=== PATIENT | female | born 1995 | race Caucasian/White ===

== ENCOUNTER 2021-11-27 12:44 | Outpatient (CLI) | payer OTHER, SELFPAY ==
--- NOTE | 2021-11-27 13:00 | CRLHL7_ITS ---
For Patients: As a result of the Century Cures Act, medical imaging exams and procedure reports are released immediately into your electronic medical record. You may view this report before your referring provider. If you have questions, please contact your health care provider. INDICATION: Evaluate anatomy. COMPARISON: 08/28/2021 TECHNIQUE: Real time hester scale imaging of the fetus was performed as well as color Doppler analysis of the umbilical vessels. FINDINGS: Sonographic imaging demonstrates a single living intrauterine gestation. Fetus demonstrates a regular cardiac rate of 150 beats per minute. Fetus has a longitudinal breech position. The placenta lies posteriorly without evidence of placenta previa. The edge of the placenta is located 3.6 cm from the internal cervical os. Amniotic fluid volume appears normal. Single deepest vertical pocket: 3.9 cm. The cervix is closed and measures 4.9 cm in length. The composite ultrasound gestational age is calculated at 19 weeks 4 days with an estimated sonographic due date of 04/19/2022. The estimated weight is 315 grams which lies at the 43rd %. The following biometric measurements were obtained: Biparietal diameter: 4.4 cm/19 weeks 2 days 24th% Head circumference: 16.5 cm/19 weeks 2 days 17th% Abdominal circumference: 14.8 cm/20 weeks 0 days 51st% Femur length: 3.1 cm/19 weeks 5 days 38th% The HC/AC ratio measures: 1.12 range (1.08-1.26) On anatomic survey, there is a normal appearance of the cerebral ventricles, cavum septi pellucidi, cisterna magna and cerebellum. The nose, lips, and facial profile appear normal. The cervical, thoracic and lumbar spine are well visualized and appear normal. There is a normal four-chamber heart view and the left and right ventricular outflow tracts appear normal. The diaphragm and stomach appear normal. The kidneys and bladder also appear normal. There is a normal three-vessel cord and cord insertion site. The four extremities appear normal. IMPRESSION: Normal OB ultrasound exam with concordance of clinical and sonographic dating. No intrinsic abnormalities noted on anatomic survey. Dictated by Trevor Sierra MD @ 11/27/2021 2:34:20 PM (Electronically Signed)
== END 2021-11-27 12:45 | disposition home or self-care (01) ==
LOC: US 12:46
PROVIDERS: PCP Family Medicine; Visit Provider Registered Nurse
DX: Z34.92 Encounter for supervision of normal pregnancy, unspecified, second trimester (principal); Z3A.19 19 weeks gestation of pregnancy
CPT/HCPCS: 76805; 87086

== ENCOUNTER 2022-04-30 06:51 | Inpatient (IN) | payer OTHER, SELFPAY ==
--- OUTSIDE RECORDS SUMMARY | 2022-04-30 06:55 | XMS_ITS | Encounter Summary ---
:1995 Author Organization [facility] Address [address] [place] [address] Care Team Providers Name Role Phone Unavailable Primary Care Provider Unavailable Reason for Visit Reason Comments Vag Bleed Encounter Details Date Type Department Care Team Description 09/07/2019 Emergency [facility] [address] [place] [address] Social History Tobacco Use Types Packs/Day Years Used Date Smoking Tobacco: Never Smokeless Tobacco: Never Sex Assigned at Date Recorded Not on file documented as of this encounter Last Filed Vital Signs Vital Sign Reading Time Taken Comments Blood Pressure 135/73 09/07/2019 4:18 PM CDT Pulse 102 09/07/2019 4:18 PM CDT Temperature 37.5 ??C (99.5 ??F) 09/07/2019 4:11 PM CDT Respiratory Rate 18 09/07/2019 4:11 PM CDT Oxygen Saturation 97% 09/07/2019 4:18 PM CDT Inhaled Oxygen Concentration - - Weight 75 kg (165 lb 5.5 oz) 09/07/2019 4:10 PM CDT Height 154.9 cm (5' 1) 09/07/2019 4:10 PM CDT Body Mass Index 31.24 09/07/2019 4:10 PM CDT documented in this encounter ED Notes Joann Pagan R.N. - 09/07/2019 4:18 PM CDT Patient presents to ED d/t vaginal bleeding. Reports she is approx. 6 weeks & noted vaginal bleeding & lower abd cramping today about 12. Reports bleeding is currently less severe thanwhen it began Joann Pagan R.N. 09/07/19 1619 documented in this encounter Plan of Treatment Not on filedocumented as of this encounter Visit Diagnoses Not on filedocumented in this encounter
--- OUTSIDE RECORDS SUMMARY | 2022-04-30 06:55 | XMS_ITS | Encounter Summary ---
:1995 Author Organization [facility] Address [address] [place] [address] Care Team Providers Name Role Phone Unavailable Primary Care Provider Unavailable Encounter Details Date Type Department Care Team Description 1996 - 1996 Hospital Encounter HX RST 4-7 Social History Tobacco Use Types Packs/Day Years Used Date Smoking Tobacco: Never Assessed Sex Assigned at Date Recorded Not on file documented as of this encounter Plan of Treatment Not on filedocumented as of this encounter Visit Diagnoses Not on filedocumented in this encounter
--- OUTSIDE RECORDS SUMMARY | 2022-04-30 06:55 | XMS_ITS | Encounter Summary ---
:1995 Author Organization [facility] Address [address] [place] [address] Care Team Providers Name Role Phone Unavailable Primary Care Provider Unavailable Reason for Referral Specialty Diagnoses / Procedures Referred By Contact Refer red To Contact Emory Fernandes M.D. [facility] [address] [place] [address] Referral ID Status Reason Start Date Expiration Date Visits Requ ested Visits Authorized ER FEEDER Encounter Details Date Type Department Care Team Description 05/22/2020 Orders Only RST PCP [facility] Juan Francisco Fernandes Jr., M.D. [address] [place] [phone] (Wo rk) Social History Tobacco Use Types Packs/Day Years Used Date Smoking Tobacco: Never Smokeless Tobacco: Never Sex Assigned at Date Recorded Not on file documented as of this encounter Plan of Treatment Scheduled Referrals Name Type Priority Associated Order Schedule Diagnoses Covid immunization Outpatient Referral Routine Ex pected: office visit Initial 020 (Approximate), Expires: 05/22/2021 documented as of this encounter Visit Diagnoses Not on filedocumented in this encounter
--- OUTSIDE RECORDS SUMMARY | 2022-04-30 06:55 | XMS_ITS | Clinical Summary ---
:1995 Author Organization [facility] Address [address] [place] [address] Care Team Providers Name Role Phone Unavailable Primary Care Provider Unavailable Source Comments Patient records contain information from all sites at [facility]. For routine questions regarding patient records, call [phone] during business hours, M-F 8:00 AM - 5:00 PM Central Time. Record requests for emergency care only can be directed to [phone] at any time.[facility] Allergies No known active allergies Medications Medication Sig Dispensed Refills Start Date End Date Status Take 1 tablet by 0 Act nisha [id number]-Zc-[id number]-FA mouth daily. (VINATE ONE) 60 mg iron-1 mg per tablet Active Problems Comments Yes No known active problems Immunizations Name Administration Dates Next Due 4vHPV (discontinued) 02/05/2008, 09/26/2007, 07/26/2007 DTaP (Infanrix, Tripedia) 01/04/2001, 06/17/1997, 1996 , 1996, 1996 H1N1 Inj 03/26/2009 HepA Pediatric/Adolescent 02/05/2008, 07/26/2007 HepB Adult 08/09/2017 HepB, Unspecified 1996, 1996, 1996 Hib, Unspecified 06/17/1997, 1996, 1996, 1996 Influenza Laiv (Nasal) (Discontinued) 03/12/2010 Influenza, Seasonal, Injectable 04/21/2005 Influenza, Unspecified 04/01/2006 MMR 01/04/2001, 03/18/1997 Polio, Unspecified 01/04/2001, 06/17/1997, 1996, 1996 SARS-COV-2 (COVID-19) - PFIZER (12 06/19/2020, 05/27/2020 years or older) Tdap 08/05/2017, 07/26/2007 SURY 03/18/1997 influenza vaccine quad 02/13/2019, 02/14/2018, 04/07/2017, (FLUZONE/FLUARIX) (6 months and 05/31/2016 older)(PF) Social History Tobacco Use Types Packs/Day Years Used Date Smoking Tobacco: Never Smokeless Tobacco: Never Comments Yes Sex Assigned at Date Recorded Not on file Last Filed Vital Signs Vital Sign Reading Time Taken Comments Blood Pressure 128/72 09/07/2019 8:32 PM CDT Pulse 73 09/07/2019 8:32 PM CDT Temperature 36.8 ??C (98.2 ??F) 09/07/2019 8:32 PM CDT Respiratory Rate 16 09/07/2019 8:32 PM CDT Oxygen Saturation 97% 09/07/2019 8:32 PM CDT Inhaled Oxygen Concentration - - Weight 75 kg (165 lb 5.5 oz) 09/07/2019 6:44 PM CDT Height 154.9 cm (5' 1) 09/07/2019 4:10 PM CDT Body Mass Index 31.24 09/07/2019 4:10 PM CDT Plan of Treatment Health Maintenance Due Date Last Done Comments Cervical Cancer Screening 1996 HIV Screening 1996 Hepatitis C Screening 1996 COVID-19 Vaccine (4 - 04/24/2021 02/27/2021, 06/19/2020, Booster for Pfizer series) 05/27/2020 Depression Screening 05/23/2021 (Annual PHQ-2) DTaP,Tdap,and Td Vaccines 08/06/2027 08/05/2017, 07/26/2007 , (8 - Td or Tdap) 01/04/2001, Additional history exists HPV Vaccines Completed 02/05/2008, 09/26/2007, 07/26/2007 Hepatitis B Vaccines Completed 08/09/2017, 1996, 1996, Additional history exists Influenza Vaccine Completed 03/23/2022, 02/18/2021, 03/25/2020, Additional history exists Pneumococcal vaccine (0-64 Aged Out No lo nger eligible years) based on patient 's age to complete this topic Insurance Payer Benefit Plan Subscriber ID Effective Dates Phone Address Type / Group [employer] [facility] [id number] 2019-Maurilio [phone] [facility] X [id number] PPO EMPLOYEE PLAN nt [address] [place] [address]
--- OUTSIDE RECORDS SUMMARY | 2022-04-30 06:55 | XMS_ITS | Encounter Summary ---
:1995 Author Organization [facility] Address [address] [place] [address] Care Team Providers Name Role Phone Unavailable Primary Care Provider Unavailable Encounter Details Date Type Department Care Team Description 06/19/2020 Immunization Department of [facility] er For COVID-19 Medicine, [place] Vaccine Immunization [place], in [place], [place] [address] [place], [place] [address] Social History Tobacco Use Types Packs/Day Years Used Date Smoking Tobacco: Never Smokeless Tobacco: Never Sex Assigned at Date Recorded Not on file documented as of this encounter Plan of Treatment Not on filedocumented as of this encounter Visit Diagnoses Diagnosis Encounter For COVID-19 Vaccine Immunizat ion documented in this encounter
--- OUTSIDE RECORDS SUMMARY | 2022-04-30 06:55 | XMS_ITS | Encounter Summary ---
:1995 Author Organization [facility] Address [address] [place] [address] Care Team Providers Name Role Phone Unavailable Primary Care Provider Unavailable Reason for Referral Specialty Diagnoses / Procedures Referred By Contact Refer red To Contact RST [address] [phone] Referral ID Status Reason Start Date Expiration Date Visits Requ ested Visits Authorized VISION DIRECTOR Encounter Details Date Type Department Care Team Description 05/27/2020 Immunization Department of [facility] er For COVID-19 Medicine, [place] Vaccine Immunization [place], in [facility] (Prima ry Dx) [address] [address] Social History Tobacco Use Types Packs/Day Years Used Date Smoking Tobacco: Never Smokeless Tobacco: Never Sex Assigned at Date Recorded Not on file documented as of this encounter Plan of Treatment Scheduled Referrals Name Type Priority Associated Diagnoses Order S chedule Covid immunization Outpatient Referral Routine Encounter For E xpected: office visit Covid-19 Vaccine 06/17/2020, Subsequent; 21 days Immunization Expires: 05/27/2023 documented as of this encounter Visit Diagnoses Diagnosis Encounter For COVID-19 Vaccine Immunizat ion - Primary documented in this encounter
--- OUTSIDE RECORDS SUMMARY | 2022-04-30 06:55 | XMS_ITS | Encounter Summary ---
:1995 Author Organization [facility] Address [address] [place] [address] Care Team Providers Name Role Phone Unavailable Primary Care Provider Unavailable Reason for Visit Reason Comments Vaginal Bleeding - presents with spotty vagin al bleeding since 1230 today. States she is 6 weeks pregna nt Encounter Details Date Type Department Care Team Description 09/07/2019 Emergency [place] [facility] Bleeding Vaginal Department Kathe SAWYER M.D. Less Than [id number] [address] [facility] [address] [facility] Week [place], [place] (Primar [place] Dx) [phone] (Wo rk) Social History Tobacco Use Types [...] 5.5 oz) 09/07/2019 6:44 PM CDT Height - - Body Mass Index 31.24 09/07/2019 4:10 PM CDT documented in this encounter Discharge Instructions AttachmentsThe following attachments cannot be sent through Care Everywhere. Vaginal Bleeding During First Trimester (Yemeni)documented in this encounter Medications at Time of Discharge Medication Sig Dispensed Refills Start Date End Date Take 1 tablet by 0 [id number] (VINATE mouth daily. ONE) 60 mg iron-1 mg per tablet documented as of this encounter ED Notes Erick Solis III, M.D. - 09/07/2019 7:08 PM CDT SUBJECTIVE CHIEF COMPLAINT/REASON FOR VISIT Vaginal Bleeding - (presents with spotty vaginal bleeding since 1230 today. 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 (brown, dark, mixed with mucous) Severity: Mild Onset quality: Sudden Duration: 7 hours Timing: Constant Progression: Improving Chronicity: New Prior : yes confirmed by ultrasound: no Gestational age: 6 WKS care: Regular care Number of pads used: 0 Number of tampons used: 0 Context: after urination, at rest and spontaneously Context: not after bowel movement, not after intercourse, not during bowel movement, not during intercourse, not during urination and not genital trauma Relieved by: None tried Worsened by: Nothing Associated symptoms: abdominal pain and vaginal discharge Associated symptoms: no dysuria, no fatigue, no fever and no nausea Abdominal pain: Location: Suprapubic Quality: cramping Severity: Mild Onset quality: Sudden Duration: 7 hours Timing: Intermittent Progression: Unchanged Chronicity: New Risk factors: no bleeding disorder, no gynecological surgery, no hx of ectopic , no hx of endometriosis, no ovarian cysts, no ovarian torsion, no prior miscarriage and no terminated She had a quantitive HCG done at [facility] on 09/02 was 5000. I do not have access to her chart to check this. REVIEW OF SYSTEMS Constitutional: Negative for chills, fatigue and fever. HENT: Negative for congestion, ear pain, sore throat and trouble swallowing. Eyes: Negative. Respiratory: Negative for cough, shortness of breath and wheezing. Cardiovascular: Negative for chest pain, palpitations and leg swelling. Gastrointestinal: Positive for abdominal pain. Negative for constipation, diarrhea, nausea and vomiting. Endocrine: Negative for cold intolerance and heat intolerance. Genitourinary: Positive for vaginal bleeding and vaginal discharge. Negative for dysuria, frequency,urgency and vaginal pain. Musculoskeletal: Negative. Skin: Negative for color change and rash. Allergic/Immunologic: Negative. Neurological: Negative. Hematological: Negative for adenopathy. Does not bruise/bleed easily. Psychiatric/Behavioral: Negative for depression. All other systems reviewed and are negative. OBJECTIVE Initial Vitals [09/07/192] Temperature Pulse Rate Heart Rate Resp Rate Blood Pressure SpO2 36.8 ??C 88 -- 16 (!) 140/93 98 % Pain Score -- PHYSICAL EXAMINATION Constitutional: Nursing note and vitals reviewed. HENT: Head: Normocephalic. Mouth/Throat: Mucous membranes are moist. Cardiovascular: Normal rate, regular rhythm, S1 normal, S2 normal and normal heart sounds. Pulses are strong and palpable. Capillary refill: takes less than 3 seconds, Pulmonary/Chest: Effort normal and breath sounds normal. There is normal air entry. Abdominal: Soft. Bowel sounds are normal. There is abdominal tenderness in the right lower quadrant and left lower quadrant. There is no rigidity, no rebound, no guarding and no CVA tenderness. Mild discomfort with palpation of the abdomen. Neurological: She is alert and oriented to person, place, and time. Skin: Skin is warm, dry, intact and normal color. ASSESSMENT/PLAN Impression and Plan at 6 wks gestation who had a acute onset of light pink discharge earlier today. This has partially resolved or improved. She had a quantitative HCG on Tuesday that was about 7477-8486[place] [address]. This likely represents a normal increase. We are going to plan on having her call andsee if she can get a repeat test on Tuesday if she has continued spotting. I will call her tomorrow to see if she is still having symptoms. Reasons to return to the ED discussed. Differential Diagnoses Differential diagnoses includes but is not limited to: Uterine fibroids, IUP, ectopic , placenta previa, spontaneous and cancers of the uterus & cervix. This includes the life threatening complications of hypovolemia secondary to bleeding, ectopic and cancer. I reviewed previous medical records including documentation from previous visits. I personally reviewed the lab result(s) and my interpretation is normal. Final Diagnoses: as of Sep 06 2032 Bleeding Vaginal Less Than 22 Week Erick Solis III, M.D. 09/08/192002 documented in this encounter Plan of Treatment Not on filedocumented as of this encounter Procedures Procedure Name Priority Date/Time Associated Comments Diagnosis HUMAN CHORIONIC STAT 09/07/2019 7:31 PM Result s for this GONADOTROPIN (HCG), CDT procedur e are in JD, the results section. documented in this encounter Results (ABNORMAL) hCG (Human Chorionic Gonadotropin), Quantitative, (09/07/2019 7:31 PM CDT) [facility] Signature HCG, [address] (H) <5 IU/L 09/07/2019 CNFL Quantitative, 10:28 PM CDT , P Comment: Biotin has been identified by the deja hagen as a potential interfering substance. ??Higher concentr ations of biotin may be found in multivitamins, hair/nail supple ments, and workout supplements. ??If the result does not ma tch clinical observations, repeat testing after patient refrains fr om the use of supplements for at least 12 hours. Specimen Anatomical Collection Method Collection Time Receive d Time (Source) Location / / Volume Laterality Blood (Blood, 09/07/2019 7:31 PM 09/07/19 7:34 Venous) CDT PM CDT Erick Solis III, M.D. LAB BLOOD ADD-ON Performing Organization Address City/State/ZIP Code Phon e Number [address] [address] [place] [address] System in [address] documented in this encounter Visit Diagnoses Diagnosis Bleeding Vaginal Less Than 22 Week (HCC) - Primary documented in this encounter
[2022-04-30 07:19] VITALS: BP 117/63; PULSE 93; RESP 16; TEMP 36.9
--- NOTE | 2022-04-30 07:45 | PM.OBHPLI ---
Documented by User: Joselin Griffith CNM 04/30/22 17:12 OB - H&P: HPI Labor/Induction History of Present Illness Time Seen by Provider: 08:15 Date Seen: 04/30/22 Chief Complaint: Alvina is a 27 year old 1 para 0 at 40 6/7 weeks gestation by LMP, who presents with for postdates IOL. Chief complaint: Maternity : 1 Para: 0 Date of last menstrual period: 07/11/21 Estimated date of delivery: 04/17/22 Gestational age based on last menstrual period: 41 Indications for induction: other (Post-dates) Narrative: Alvina is a 27 year old 1 para 0 at 40 6/7 weeks gestation by LMP, who presents with for postdates IOL. Alvina started her OB care with us but then transferred to [facility] at 24w. At 41w 5d, she transferred back to us because she desired an induction for dates. Pt has received regular care through out , records from [facility] were received on admit. Partner, Adalberto, supportive at bedside. Desires waterbirth, consents signed, hep C negative. SVE at visit yesterday: /-2. Blood Type: O positive Partner: Adalberto 1. Rubella non-immune. Recommend MMR vaccine pp 2. 20 week US: posterior placenta, SDP 3.9, FHR 150, GENEVIEVE 43% per tech report. Covid: vaccinated and boosted Flu: vaccinated Tdap History of Present Dating criteria: based on LMP care: good care (Pt seen here until 24w, then with [facility]. Transferred back to us for IOL for post-dates.) Ultrasounds: normal 1st trimester US Medical complications: none Labs Blood type: O (+) positive Rubella: nonimmune RPR/VDLR: nonreactive GBS status: negative HBsAG: negative Review of Systems Status of ROS: Reports: 10 or more systems reviewed and unremarkable except as noted in History and below Meds Home Medications and Allergies Home Medications Medication Instructions Recorded Confirmed Type calcium carbonate 200 mg calcium 200 mg PO BID PRN 11/27/21 04/30/22 History (500 mg) chewable tablet (Antacid (calcium carbonate)) prenat.vits,rima,prk-mloj-zlcez 1 tab PO QDAY 11/27/21 04/30/22 History evening primrose oil-linoleic 1 cap PO TID 04/29/22 04/30/22 History acid-gamolenic acid 1,000 mg capsule Allergies Allergy/AdvReac Type Severity Reaction Status Date / Time No Known Allergies Allergy Unknown Verified 04/29/22 09:33 OB - H&P: Exam Physical Exam: Vital signs: Pulse BP 93 117/63 04/30/22 07:19 04/30/22 07:19 Constitutional: Constitutional: no acute distress Routine HEENT Exam: Head: Present normocephalic Eye: Present normal appearance Routine Neck Exam: Neck: Present full ROM Routine Respiratory Exam: Respiratory: Present CTA bilaterally Routine Cardiovascular Exam: Cardiovascular: RRR Detailed Abdominal Exam: Comments: Gravid Routine Exam: Patient deferred: external exam Detailed Labor and Delivery Exam: Patient Gravid: yes Tachysystole: No Routine Extremities Exam: Extremities: Present full ROM; Absent pedal edema Routine Back/Spine/Pelvis Exam: Back/Spine: full ROM Routine Neurological Exam: Present alert and oriented X3 Routine Psychiatric Exam: Present normal affect and normal thought process OB - Problem Based A/P Additional Plan (1) Post term at 41 weeks gestation: Status: Resolved Plan 27 yo @ 41w 6d Admit for IOL r/t dates Delivery/Labor/Induction Plan Plan: induction Induction method: per misoprostol protocol Documented by User: Diana Quezada CNM 05/04/22 10:25 OB - H&P: HPI Labor/Induction History of Present Illness Chief complaint: Maternity Estimated date of delivery: 04/17/22 Gestational age based on last menstrual period: 42 Meds Home Medications and Allergies Home Medications Medication Instructions Recorded Confirmed Type calcium carbonate 200 mg calcium 200 mg PO BID PRN 11/27/21 04/30/22 History (500 mg) chewable tablet (Antacid (calcium carbonate)) prenat.vits,rima,abr-vsmp-dmvzt 1 tab PO QDAY 11/27/21 04/30/22 History evening primrose oil-linoleic 1 cap PO TID 04/29/22 04/30/22 History acid-gamolenic acid 1,000 mg capsule Allergies Allergy/AdvReac Type Severity Reaction Status Date / Time No Known Allergies Allergy Unknown Verified 04/29/22 09:33 OB - Problem Based A/P Additional Plan (1) Post term at 41 weeks gestation: Status: Resolved Plan 27 yo @ 41w 6d GBS neg complications: failed 1 hr, tested X1 week, all WNL IOL r/t dates 1. Admit to L & D for IOL for dates 2. Options reviewed, decision made to proceed with cytotec for cervical ripening. Risks and benefits reviewed. 3. Pt candidate for analgesia of choice. Planning unmedicated . 4. Desires water . Hep C neg, consent signed 5. Monitoring per protocol 6. No IV access needed at this time. 7. Anticipate progress to NVD.
[2022-04-30 07:48] VITALS: BMI 36.9
[2022-04-30 08:15] LABS: SARS PCR* Negative SARS-CoV-2 (Negative)
[2022-04-30] MEDS: miSOPROStoL 25 MCG/0.25 TABLET VAGINAL ×3 (08:24→16:30)
[2022-04-30 10:10] VITALS: BP 101/56; PULSE 78; RESP 16; TEMP 36.7
[2022-04-30 13:47] VITALS: BP 121/62; PULSE 77; RESP 16; TEMP 36.8
[2022-04-30 17:00] VITALS: BP 111/55; PULSE 73; RESP 16; TEMP 36.6
--- NOTE | 2022-04-30 17:12 | PM.OBPNL ---
Subjective Date Seen: 04/30/22 Narrative: Alvina is coping well with IOL. She is currently being supported by Adalberto. Understands the current plan of care. ?Denies concerns. Questions answered to her satisfaction. ?She would like to continue with ambulation, position changes, resting in bed, and other non-pharmacological options of her choice for comfort and pain management.?? Objective Exam: VSS, afebrile General Appearance:?Calm, cooperative. No acute distress. ? Psychiatric Exam: Alert and oriented, appropriate affect Abdomen: Gravid Ctx: ?Q 3-4 min apart.?Mild ? ? FHTs: ?Baseline: 150 ? ?Variability: Moderate ? Accels: Present ? ?Decels: ?Absent SVE: 280/-1 Membranes: Intact ? Vital Signs: Last Vital Signs Temp 97.8 F 04/30/22 17:00 Pulse 73 04/30/22 17:00 Resp 16 04/30/22 17:00 BP 111/55 L 04/30/22 17:00 Plan Plan: Assessment:?? 27yo at 41w 6d gestation?? Patient is coping well with challenges of IOL.?? Labor type: IOL continuing Category 1 FHR pattern. Plan:?? Continue with routine intrapartum cares as ordered.?? Patient encouraged to ambulate, do labor warm up circuit, and rest as needed to promote physiologic labor and .?? Analgesia or nonpharmacologic comfort measures per patient preference. Patient plans for waterbirth. Anticipate progress to active labor and . ?
[2022-04-30 19:18] VITALS: BP 128/72; PULSE 85; RESP 18; TEMP 37
[2022-04-30 23:48] VITALS: BP 117/67; PULSE 88; RESP 18; TEMP 37.1
[2022-05-01] VITALS (160 sets, daily range): BP systolic 94–148; BP diastolic 50–79; PULSE 71–172; RESP 1–18; TEMP 37–37.1; O2SAT 87–99
--- NOTE | 2022-05-01 02:19 | PM.OBPNL ---
Subjective Date Seen: 05/01/22 Narrative: Alvina is coping well with labor pain/contractions. She reports they are definitly getting more intense and she is feeling them strongly in her back and hips. She is currently being supported by Adalberto & her Security Operations Engineer. Understands the current plan of care. ?Denies concerns, but would like to be able to get some rest. Questions answered to her satisfaction. ?She would like to continue with position changes and hydrotherapy for comfort and pain management and would like to try the labor sling. Discussed options for pain management including nitrous, IV medications, and getting into the waterbirth tub, Alvina is considering and will let us know what she would like. ?? ? Objective Exam: VSS, afebrile General Appearance:?Calm, cooperative. No acute distress. ? Psychiatric Exam: Alert and oriented, appropriate affect Abdomen: Gravid Ctx: ?Q 2-5 min apart. ?Moderate ? FHTs: ?Baseline: 150 ? ?Variability: Moderate ? Accels: absent ? ?Decels: ?absent SVE: 50/-2 Membranes: Intact ? ? Vital Signs: Last Vital Signs Temp 98.8 F 04/30/22 23:48 Pulse 88 04/30/22 23:48 Resp 18 04/30/22 23:48 BP 117/67 04/30/22 23:48 Plan Plan: Assessment:?? 27yo at 42w 0d gestation?? Patient is coping well with challenges of labor.?? Labor type: Induced, Early labor? Category 1 FHR pattern.?? Plan:?? Continue with routine intrapartum cares as ordered.?? Patient encouraged to balance ambulation and position changes with rest to promote physiologic labor and .?? Analgesia or nonpharmacologic comfort measures per patient preference. Patient plans for waterbirth. Anticipate progress to active labor and .
[2022-05-01] MEDS: SODIUM CHLORIDE 0.9 % (FLUSH) 10 ML SYRINGE IVF (02:45)
[2022-05-01] MEDS: LACTATED RINGERS 1000 ML 1,000 ML 1200 ML IV ×2 (03:50→04:58)
--- NOTE | 2022-05-01 04:27 | P.OBPN_ITS ---
Subjective Time Seen by Provider: 04:28 Date Seen: 05/01/22 Narrative: Alvina is struggling with labor pain/contractions and requesting epidural. She is currently being supported by Adalberto & her Warehouse Receiving Clerk. She has been unable to relax or rest, and she stated the pain in her back is unbearable. Alvina reported that she felt the baby move significantly and then the pain became so intense in her back that she could not find any relief. Resting on beanbag with warm blankets on her back helped get her through while waiting for anesthesia to arrive. Questions answered to her satisfaction. ?She would like to continue with epidural for comfort and pain management.?Alvina did not want to be checked before the epidural. Encouraged her to rest once the epidural is placed, and she is agreeable to being checked at that point.? Objective Exam: VSS, afebrile General Appearance:?Crying through contractions. Psychiatric Exam: Alert and oriented, appropriate affect Abdomen: Gravid Ctx: ?Q 3-6 min apart. ?Strong FHTs: ?Baseline: 145 ? ?Variability: minimal-moderate ? Accels: absent ? ?Decels: ?occasional variables Membranes: Intact Vital Signs: Last Vital Signs Temp 98.8 F 04/30/22 23:48 Pulse 80 05/01/22 02:51 Resp 18 04/30/22 23:48 BP 94/51 L 05/01/22 02:51 Pulse Ox 98 05/01/22 03:37 Plan Plan: Assessment:?? 27yo at 42w 0d gestation?? Patient is struggling with challenges of labor.?? Labor type: Induced, Early labor? Category 2 FHR pattern.?? Plan:?? Continue with routine intrapartum cares as ordered.?? Patient encouraged to change positions to promote physiologic labor and .?? Analgesia or nonpharmacologic comfort measures per patient preference. Patient plans for epidural Anticipate progress to active labor and . ?
[2022-05-01] MEDS: ROPIVACAINE 0.2 % PF 10 ML INJ 20 MG EPIDURAL (04:31)
[2022-05-01] MEDS: LIDOCAINE 2% (PF) 5 ML VIAL EPIDURAL (04:31)
[2022-05-01] MEDS: ROPIVACAINE 0.2% 100 ml 100 ML 12 MG EPIDURAL ×2 (04:48→13:52)
--- NOTE | 2022-05-01 04:54 | PM.ANBPRC ---
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 Smoking Status: Never smoker Meds Home Medications and Allergies Home Medications Medication Instructions Recorded Confirmed Type calcium carbonate 200 mg calcium 200 mg PO BID PRN 11/27/21 04/30/22 History (500 mg) chewable tablet (Antacid (calcium carbonate)) docusate sodium 100 mg capsule mg PO .Daily as needed PRN 11/27/21 04/29/22 History prenat.vits,rima,vvc-tnep-iwjgt 1 tab PO QDAY 11/27/21 04/30/22 History evening primrose oil-linoleic 1 cap PO TID 04/29/22 04/30/22 History acid-gamolenic acid 1,000 mg capsule Allergies Allergy/AdvReac Type Severity Reaction Status Date / Time No Known Allergies Allergy Unknown Verified 04/29/22 09:33 Results Labs Labs: Laboratory Results - last 24 hr 04/30/22 07:27 SARS-CoV-2 (PCR) Negative SARS-CoV-2 Vital Signs Vital Signs: Last Vital Signs Temp 98.8 F 04/30/22 23:48 Pulse 93 05/01/22 04:52 Resp 18 04/30/22 23:48 BP 117/55 L 05/01/22 04:52 Pulse Ox 97 05/01/22 04:51 Weight: 91.637 kg Height: 157.48 cm Anesthesia Procedures Epidural Insertion Patient Location: OB Start Time: 04:00 Stop Time: 04:54 Start Date: 05/01/22 Stop Date: 05/01/22 Reason for Block: procedure for pain Patient Position: sitting Performed By: Tavo Celis Preanesthetic Checklist: IV checked, risks and benefits discussed, surgical consent, monitors and equipment checked, pre-op evaluation, timeout performed and anesthesia consent Prep: chlorhexidine gluconate Monitoring: blood pressure monitoring, continuous pulse oximetry and heart rate Approach: midline Vertebral Space: lumbar (1-5) Needle Type: Tuohy needle Injection Technique: continuous catheter Needle gauge: 17 Needle Length (cm): 10 cm Needle Insertion Depth (cm): 7 Catheter Gauge: 19 Catheter Type: multi-orifice Catheter at skin depth (cm): 13 Test Dose Result: negative and lidocaine 1.5% with epinephrine 1 to 200,000
[2022-05-01] MEDS: PHENYLEPHRINE 100 MCG/ML SYRINGE IVP ×4 (06:17→07:00)
--- NOTE | 2022-05-01 07:25 | PM.OBPNL ---
Subjective Time Seen by Provider: 07:25 Date Seen: 05/01/22 Narrative: Alvina is resting well with epidural at 0725. She is currently being supported by Adalberto & her Elastic Yarn Twister Helper at bedside. Agreeable to SVE. ?Denies concerns. Questions answered to her satisfaction. ?She would like to continue with epidural for comfort and pain management.?? Into room at 0845 to assess as contractions were still spaced out to up to 10 minutes, discussed AROM or pitocin augmentation - pt agreeable to AROM at this time, open to pitocin later if needed. Objective Exam: VSS, afebrile General Appearance:?Calm, cooperative. No acute distress. ? Psychiatric Exam: Alert and oriented, appropriate affect Abdomen: Gravid Ctx: ?Q 5 min apart.?Moderate ? FHTs: ?Baseline: 145 ? ?Variability: Minimal-Moderate ? Accels: Present ? ?Decels: ?Occasional Variables SVE: /-1 Membranes: Intact ?AROM at 0856 for clear fluid. Vital Signs: Last Vital Signs Temp 98.8 F 04/30/22 23:48 Pulse 85 05/01/22 07:12 Resp 18 04/30/22 23:48 BP 115/59 L 05/01/22 07:12 Pulse Ox 96 05/01/22 07:21 Plan Plan: Assessment:?? 27yo at 42w 0d gestation?? Patient is comfortable with epidural Pitocin at 6mu AROM at 0856 for clear fluid Labor type: Induced, Active labor? Category 2 FHR pattern.?? Plan:?? Continue with routine intrapartum cares as ordered.?? Patient encouraged to change positions to promote physiologic labor and .?? Continue with Epidural and nonpharmacologic comfort measures per patient preference. Anticipate progress to . ?
[2022-05-01] MEDS: OXYTOCIN 30 unit/500 ML in NS 30 UNIT/500 ML BAG IVPB (09:38)
[2022-05-01 11:48] LABS: Strep B DNA Probe NEGATIVE (Negative)
[2022-05-01] MEDS: LACTATED RINGERS 1000 ML 1,000 ML 114 ML IV (13:15)
--- NOTE | 2022-05-01 17:51 | P.OBCN_ITS ---
OB - CN: HPI Date of Consult Time Seen by Provider: 16:00 Date Seen: 05/01/22 Patient: [facility] Patient Consult date: 05/01/22 Requesting Physician: Diana Quezada CNM Primary Care Provider: Shirlene Lewis MD Consult Narrative Narrative: HPI: Alvina is a 27 year old G 1 P 0 at 42 and 0/7 weeks gestation that was admitted to the [facility] on 04/30/22 for an induction of labor for postdates .. She had an unfavorable exam on admission and received vaginal Cytotec. On 05/01/2022 her membranes were ruptured at approximately 10:00 a.m., clear fluid noted. Pitocin was then started for induction. Her cervical dilation remained approximately 6 cm dilated all day from 10:00 a.m. to 4:00 p.m. A primary low-transverse section was recommended for arrest of dilation. History of Present care: good care Ultrasounds: normal 1st trimester US and normal mid trimester US History History 1 Elective abortions Para 0 Spontaneous abortions 1 Hx # Term Pregnancies Ectopic pregnancies Hx # Pregnancies Multiple births Number of Living Children 0 Labs Blood type: O (+) positive Rubella: nonimmune RPR/VDLR: nonreactive GBS status: negative HBsAG: negative OB Labs: Lab Assessment Start: 04/30/22 07:20 Freq: ONCE Status: Complete Protocol: PC.OBGBS Activity Type Activity Date Activity User E-sign Co-sign Detail Recorded Client Recorded Date Recorded By Document 04/30/22 11:14 [id number] 04/30/22 11:15 [facility] 04/30/22 11:14 Lab Assessment GBS Unknown Previous with Invasive GBS No Does Patient Meet Criteria No No Treatment Needed OK Maternal Blood Type O Maternal RH Factor Positive Evaluate Maternal Rubella Immune Status Non-Immune Hepatitis B Surface Antigen Negative Maternal HIV Status Negative Maternal Syphillis (RPR) Status Negative Are Labs Available Yes Lab Assessment Start: 04/30/22 11:16 Freq: Status: Complete Protocol: PC.OBGBS Activity Type Activity Date Activity User E-sign Co-sign Detail Recorded Client Recorded Date Recorded By Document 04/30/22 11:15 JAZMINE BARBA [id number] 04/30/22 11:16 JAZMINE BRABA(2) 04/30/22 11:15 Lab Assessment GBS Unknown 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 Status: Never smoker Meds Home Medications and Allergies Home Medications Medication Instructions Recorded Confirmed Type calcium carbonate 200 mg calcium 200 mg PO BID PRN 11/27/21 04/30/22 History (500 mg) chewable tablet (Antacid (calcium carbonate)) docusate sodium 100 mg capsule mg PO .Daily as needed PRN 11/27/21 04/29/22 History prenat.vits,rima,ipg-ewkm-pxolc 1 tab PO QDAY 11/27/21 04/30/22 History evening primrose oil-linoleic 1 cap PO TID 04/29/22 04/30/22 History acid-gamolenic acid 1,000 mg capsule Allergies Allergy/AdvReac Type Severity Reaction Status Date / Time No Known Allergies Allergy Unknown Verified 04/29/22 09:33 OB - H&P: Exam Physical Exam: Vital signs: Temp Pulse Resp BP Pulse Ox 98.8 F 95 18 119/56 L 99 04/30/22 23:48 05/01/22 17:29 04/30/22 23:48 05/01/22 17:29 05/01/22 09:57 Narrative: General: Pleasant, , woman in no acute distress. Vital signs per electronic medical record. Cardiac: Regular rate and rhythm without gallop, rub or murmur. Chest: Clear auscultation bilaterally without wheezes, rales or rhonchi. Abdomen: Gravid: Uterus palpates extremely large for gestation. Fundus nontender. No CVA or flank tenderness. External monitor: 140s, moderate variability, accels present, decelerations absent, reactiv presentation: Vertex SVE: 6/80%/-2 with caput. Extremities: 1-2 +bilateral lower extremity edema to the mid bryan. OB - CN: A/P Assessment and Plan (1) Post term at 41 weeks gestation: Status: Acute (2) Arrest of dilation, delivered, current hospitalization: Status: Acute Assessment and Plan: 1. Primary low-transverse section recommended for delivery. 2. Consent form was reviewed and signed and patient's questions answered.
--- NOTE | 2022-05-01 18:03 | P.PCN_ITS ---
Procedure Note Time Seen by Provider: 18:03 Date Seen: 05/01/22 Date of procedure: 05/01/22 Will [facility] bill your pro fee for this procedure?: Yes Procedure: Preoperative diagnosis: 27-year-old 2 para 0010 at 42 and 0/7 weeks * Arrest of dilation Postoperative diagnosis: Same Procedure: Primary low-transverse section Anesthesia: Epidural Surgeon: Violeta Alan MD Sports Editor: Not applicable Quantitative blood loss: 1238 mL IV Fluid: 1300 mL UOP: 250 mL: Blood tinged at the beginning and end of the procedure Specimen: None Drain(s): Chinchilla to gravity Indications: See consultation note: Arrest of dilation at 6 cm. Findings: A live male Braedyn infant was delivered from the LOT position at 6:50 p.m. Apgars were 8 at 1 min and 9 at 5 min respectively. Infant weight: 8 lb 11 oz. Nuchal cord(s): No. The placenta was delivered spontaneously and complete at 6:52 p.m. Amniotic fluid: Clear. Normal uterus, fallopian tubes and ovaries were noted. Other findings: No abnormalities Procedure: Alvina was taken to the OR where epidural anesthetic was found be adequate. A Chinchilla catheter was placed. The patient was then placed in the dorsal supine position with a leftward tilt. She was then prepped and draped in a normal sterile manner. A Pfannenstiel skin incision was made and carried through sharply to the underlying layer of fascia. Fascia was incised in the midline and this incision carried laterally with Acevedo scissors. The superior aspect of fascial incision was grasped with Thea clamps, tented up, and the rectus muscles dissected off with a combination of blunt and sharp dissection. The inferior aspect of the fascial incision was grasped with Thea clamps, tented up and again the rectus muscles dissected off with a combination of blunt and sharp dissection. The rectus muscles were in the midline. The peritoneum was entered bluntly. This opening was extended bluntly. An Gallo-O self-retaining retractor was placed. A bladder flap was not created. Uterus was incised in a low transverse manner in the midline. This incision carried laterally with blunt pressure on the inferior and superior aspects of the uterine incision. The amniotic sac was ruptured. The 's head and body was delivered atraumatically. The infant was shown to the patient and her support person and then handed to waiting pediatric and nursing staff. The place nta was delivered spontaneously. The uterus was cleared of clots and debris. The uterine incision was re-approximated with the uterus in vivo. The 1st layer using 0-Vicryl in a running, locked manner. The 2nd layer using 0-Monocryl in a running, vertical, imbricating layer. Additional sutures needed for hemostasis: Yes: 3 figure of 8 sutures using 2-0 chromic. Suzie was then applied to the uterine incision. Excellent hemostasis was verified. The Gallo retractor was removed. The peritoneum was reapproximated using 3-0 Vicryl in a running manner. The rectus muscles were not reapproximated. The rectus muscles were then closely inspected to verify hemostasis. Hemostasis was obtained with bipolar cautery. The fascia was then re-approximated using 0-Maxon loop in a running manner. The subcutaneous tissue was then irrigated with saline and hemostasis obtained with bipolar cautery. The subcutaneous tissue was re-approximated using 3-0 plain gut in a running manner. The skin was reapproximated using 4-0 Monocryl in a running subcuticular manner. Exofin skin adhesive and a Methaplex dressing were applied. The patient tolerated this procedure well. Sponge, lap and instrument counts were correct x2 active to the procedure. Patient was taken to the recovery area in stable condition. The patient received 2g of IV Ancef prior to skin incision. She received 1gm IV TXA after cord clamp. Also received 1 dose of Methergine 0.2 0 mg IM. Surgeon: Violeta Alan MD
[2022-05-01] MEDS: TRANEXAMIC ACID 100 MG/ML INJ 1000 MG IV (19:00)
[2022-05-01] MEDS: CEFAZOLIN 2 GM INJ IVP (19:00)
--- NOTE | 2022-05-01 19:08 | SUR.OPER ---
Surgeon declined to send specimen to pathology
[2022-05-01] MEDS: KETOROLAC 30 MG/ML inj IVP (19:30)
--- NOTE | 2022-05-01 20:08 | W.PM.NB ---
Nerve Block Nerve Block Time Seen by Provider: 20:08 Date Seen: 05/01/22 Type of block requested by surgeon for post-operative analgesia: TAP Side: bilateral Time out performed: Yes Verification of patient name: Yes Verification of date of : Yes Site marking: site marked Name of person performing procedure: brian jerryy Continuous monitoring Was continuous monitoring of O2 sat, B/P, shelter monitor, recorded every 15 minutes?: Yes Procedure Checklist: sterile prep, needles and gloves Ultrasound guided. Images saved: Yes Medications given in 5ml increments after negative aspiration: Marcaine %: 0.25 mL: 30 and Exparel mL: 10 Patient tolerated procedure well: Yes Block Charges Block Charge (with Pro Fee): TAP Bilateral Use of Ultrasound Machine for Block: Yes- US Guidance/pain block
--- NOTE | 2022-05-01 20:08 | W.ANESCHARGE ---
Anesthesia Charges Start Date/Time Anesthesia Start Date: 05/01/22 Anesthesia Start Time: 18:14 Stop Date/Time Anesthesia Stop Date: 05/01/22 Anesthesia Stop Time: 20:00 Summary Emergency: Yes
[2022-05-01] MEDS: KETOROLAC 15 MG/ML inj IVP (20:26)
[2022-05-01] MEDS: LACTATED RINGERS 1000 ML 1,000 ML 125 ML IV ×2 (20:51)
[2022-05-02] VITALS (25 sets, daily range): BP systolic 99–135; BP diastolic 56–75; PULSE 79–100; RESP 12–18; TEMP 36.6–37; O2SAT 95–99
[2022-05-02] MEDS: KETOROLAC 30 MG/ML inj IVP ×3 (01:48→13:52)
[2022-05-02] MEDS: SODIUM CHLORIDE 0.9 % (FLUSH) 10 ML SYRINGE IVF (01:51)
[2022-05-02 07:55] LABS: Hemoglobin* 10.6 gm/dL (12.0-16.0)
[2022-05-02 08:13] LABS: Strep B Pen/Amox Allergy No
--- NOTE | 2022-05-02 08:18 | PM.OBPNCS1 ---
Documented by User: Joselin Griffith CNM 05/02/22 08:28 OB - PN: A/P Assessment and Plan (1) Status post primary low transverse section: Problem details: Arrest of dilation, LOT position, boy 8#11oz, Apgars 8/9. Braedyn Status: Acute (2) Lactating mother: Status: Acute Plan 27 yo G1 now P1 Post- Day 1 Lactating Mother Plan day: 1 Plan: routine postop care OB - PN: Subj Subjective Time Seen by Provider: 08:18 Date Seen: 05/02/22 Interval history: Alvina is a 27 year old G 1 now P 1 at 42 weeks 1 day gestation that was admitted to the Center on 04/30/22 for IOL r/t dates. She had an uncomplicated delivery after arrest of dilation. She delivered a viable male . She is breast feeding, and supplementing with donor milk d/t baby not latching effectively. the patient has done well. Patient comments: no complaints, pain well controlled and flatus present infant status: and doing well [place] feeding status: exclusively (supplementing with donor milk until baby latches effectivly) OB - PN: Obj Exam Physical Exam: Vital signs: Temp Pulse Resp BP Pulse Ox O2 Del Method 98.2 F 81 12 108/70 99 05/02/22 07:58 05/02/22 07:48 05/02/22 07:48 05/02/22 07:48 05/02/22 07:48 05/02/22 07:48 Constitutional: Constitutional: no acute distress Routine HEENT Exam: Head: Present normocephalic Eye: Present normal appearance Routine Neck Exam: Neck: Present full ROM Routine Respiratory Exam: Respiratory: Present CTA bilaterally Routine Cardiovascular Exam: Cardiovascular: Present RRR Routine Abdominal Exam: Abdominal: Present normal bowel sounds, soft and tenderness Fundus: Present firm (2/U) Routine Exam: Patient deferred: external exam Routine Extremities Exam: Extremities: Present full ROM; Absent pedal edema Routine Back/Spine/Pelvis Exam: Back/Spine: Present full ROM Routine Skin Exam: Skin: Present dry, normal color and warm; Absent rash Routine Neurological Exam: Neurological: Present alert and oriented X3 Detailed Neurological Exam: Coma Scale: Eye Opening: Spontaneous (4) Verbal Response: Orientated (5) Routine Psychiatric Exam: Psychiatric: Present normal affect, normal thought process, cooperative, good insight and good judgment Wound Management: Method: adhesive Examination: Present dressed, clean, dry and intact; Absent bloody drainage or serosanguinous drainage Comments: a few small dried spots of blood on dressing Urinary Catheter Management: Urethral: Cath placed during this visit: yes, but has since been removed by the nurse Reason for continuing: decision to DC catheter Insertion date: 05/01/22 Insertion time: 05:00 Removal date: 05/02/22 Removal time: 06:10 OB - PN: Obj Data Labs Labs: Laboratory Results - last 24 hr 04/30/22 05/02/22 09:42 07:42 Hgb 10.6 L Group B Strep DNA NEGATIVE Documented by User: Diana Quezada CNM 05/03/22 07:01 OB - PN: A/P Assessment and Plan (1) Status post primary low transverse section: Problem details: Arrest of dilation, LOT position, boy 8#11oz, Apgars 8/9. Braedyn Status: Acute (2) Lactating mother: Status: Acute Plan 27 yo G1 now P1 Post- Day 1. Continue with routine postop cares Lactating Mother, having difficulty with latch - plan to see prior to discharge. Encourage pumping and donor milk as needed. Mild acute anemia - encourage iron rich foods. Does not need supplement at this time. OB - PN: Obj Exam Urinary Catheter Management: Urethral: Cath placed during this visit: yes, but has since been removed by the nurse
--- NOTE | 2022-05-02 08:29 | P.OBPN_ITS ---
Subjective Time Seen by Provider: 15:00 Date Seen: 05/01/22 Narrative: Late Entry: Into room to assess cervical change. Cervix remained unchanged after cytotec, pitocin, multiple position changes, AROM and side lying release. Consulted with Dr. Alan about possible . 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 Pt opted to proceed with primary for arrest of dilation. Transferred care to Dr. Alan. Objective Vital Signs: Last Vital Signs Temp 98.2 F 05/02/22 07:58 Pulse 81 05/02/22 07:48 Resp 16 05/02/22 08:09 BP 108/70 05/02/22 07:48 Pulse Ox 99 05/02/22 07:48 O2 Del Method 05/02/22 07:48 Pelvic Exam Dilation (cm): 6 Effacement (%): 90 Station: -2 Comments: Unchanged from previous exam at 1300. Contractions Monitor mode: External Contraction Frequency: 2-3 Contraction pattern: Regular Contraction intensity: Strong/Firm Pitocin Rate (mU/min): 8 Assessment Assessment: active labor Station: -2 Amniotic Membrane Status: AROM Status: Category l Heart Rate Baseline: 135 Nursing Home Variability: Moderate (6-25) Monitor Accelerations: Present Monitor Decelerations: None Plan Plan: 27 yo @ 42w 0d IOL for Post-dates Arrest of Dilation Cat 1 FHT Transfer care to Dr. Arvind Williamson for primary
[2022-05-02] MEDS: ACETAMINOPHEN 500 MG TABLET 1000 MG PO (18:30)
[2022-05-02] MEDS: IBUPROFEN 600 MG TABLET PO (20:07)
[2022-05-02] MEDS: DOCUSATE SODIUM 100 MG CAPSULE PO (20:09)
[2022-05-03 00:51] VITALS: BP 110/69; PULSE 86; RESP 16; TEMP 36.7; O2SAT 97
[2022-05-03] MEDS: ACETAMINOPHEN 500 MG TABLET 1000 MG PO ×2 (01:02→09:02)
[2022-05-03] MEDS: IBUPROFEN 600 MG TABLET PO ×2 (03:11→10:59)
[2022-05-03 07:41] VITALS: BP 120/78; PULSE 83; RESP 18; TEMP 36.9; O2SAT 97
--- NOTE | 2022-05-03 07:45 | P.DS_ITS ---
DS: Providers Provider Date Seen: 05/03/22 Date of admission: 04/30/22 06:51 Primary care physician: Shirlene Lewis MD Admitting Clinician: Diana Quezada CNM Attending Physician on discharge: Diana Quezada CNM Date of Discharge: 05/03/22 DS: Diagnosis Discharge Diagnosis (1) Lactating mother: Status: Acute (2) Status post primary low transverse section: Status: Acute Problem details: Arrest of dilation, LOT position, boy 8#11oz, Apgars 8/9. Braedyn Exam Narrative: Exam Narrative: Discharge Examination? GENERAL APPEARANCE:? normal affect, alert, no distress? MOOD:? appropriate? CHEST:? clear to auscultation and percussion? HEART:? regular rate and rhythm? ABDOMEN:? soft, tender to palpation, the uterine fundus is 1 cm Below Umbilicus, Midline and is appropriate for the stage of recovery.? PERINEUM:? no edema of the intact perineum.? EXTREMITIES:? normal and no edema? Patient has no complaints? No active bleeding?? Doing well? She is requesting discharge home.? Const: Vital Signs, click to edit/add: Vital Signs - 24 hr 05/02/22 07:48 05/02/22 07:58 05/02/22 08:09 Temperature 98.2 F 98.2 F Pulse Rate [Pulse Oximeter] 81 Respiratory Rate 12 16 Blood Pressure [Ri ght Arm] 108/70 Pulse Oximetry 99 Oxygen Delivery Me thod Room Air 05/02/22 11:19 05/02/22 09:09 05/02/22 10:09 Temperature 97.9 F Pulse Rate [Pulse Oximeter] 100 Respiratory Rate 16 16 16 Blood Pressure [Ri ght Arm] 135/75 Pulse Oximetry 97 Oxygen Delivery Me thod Room Air 05/02/22 11:09 05/02/22 12:09 05/02/22 13:09 Temperature Pulse Rate [Pulse Oximeter] Respiratory Rate 16 16 16 Blood Pressure [Ri ght Arm] Pulse Oximetry Oxygen Delivery Me thod 05/02/22 14:09 05/02/22 15:09 05/02/22 16:06 Temperature 98.2 F Pulse Rate [Pulse Oximeter] 95 Respiratory Rate 16 16 16 Blood Pressure [Ri ght Arm] 99/56 L Pulse Oximetry 95 Oxygen Delivery Me thod 05/02/22 16:09 05/02/22 17:09 05/02/22 18:09 Temperature Pulse Rate [Pulse Oximeter] Respiratory Rate 16 17 16 Blood Pressure [Ri ght Arm] Pulse Oximetry Oxygen Delivery Me thod 05/03/22 00:51 05/03/22 07:41 Temperature 98.0 F 98.5 F Pulse Rate [Pulse Oximeter] 86 83 Respiratory Rate 16 18 Blood Pressure [Ri ght Arm] 110/69 120/78 Pulse Oximetry 97 97 Oxygen Delivery Me thod Room Air Room Air DS: Data Data Completed and Pending Labs on day of discharge: Labs from last 24 hours 05/02/22 07:42 Hgb 10.6 L OB - DS: Summary Hospital Course Hospital Course: Patient is a 27year old, G 2 now P 1? admitted on 04/30/22 at 39 Weeks, 0 Days gestation for post dates IOL.? She had an uncomplicated delivery.? She delivered a viable male infant.? She is breast feeding and reports things are now getting better. She struggled with baby latching and has been supplementing with donor breastmilk. She feels that baby is starting to latch better. She plans to see today before discharge.? the patient has done well.? Her pain is well controlled with current medications.? She has no new complaints.? Vitals have been stable. She has remained afebrile. She is voiding without difficulty. She is passing gas and has not had a bowel movement. She is ambulating and denies any dizziness. She is unsure what she is planning for control. Options reviewed and she will think about it. Peripartum Data Procedures: Procedures Operation Date: 05/01/22 18:30 Actual Procedure Side Surgeon p Section Violeta Alan MD complications: none Gender: Male Infant Discharge Plan: Home Status at Discharge Functional status at discharge: independent ambulation Overall status at discharge: patient is progressing back to baseline Time Spent with Patient Time attestation: Total time spent providing and/or coordinating discharge services: Discharge Plan Discharge Disposition: Home, Self-Care Date of Admission: 04/30/22 06:51 Attending Provider on Discharge: Melissa Corrigan Primary Care Provider: Shirlene Lewis Condition: Stable Anticipated Discharge Date/Time: 05/03/22 12:30 Discharge Medications: New docusate sodium 100 mg Capsule 100 mg PO BID PRN (Reason: constipation) Qty: 100 0RF ibuprofen 600 mg Tablet 600 mg PO Q6H PRN (Reason: Pain) Qty: 30 0RF oxycodone 5 mg Tablet 5 mg PO 3XD PRN (Reason: Pain) 7 Days Qty: 21 0RF Continued prasanth oepq-zchxbgkb-[id number] ac 1,000 mg capsule 1 cap PO TID Rx Instructions: administer with meals prenat.vits,rima,rnn-ofhm-swcsd Tablet 1 tab PO QDAY calcium carbonate [Antacid (calcium carbonate)] 200 mg calcium (500 mg) tablet,chewable 200 mg PO BID PRN Discontinued docusate sodium 100 mg capsule 100 mg PO .Daily as needed PRN Discharge Orders: Discharge Order (Routine); Ordered 05/03/22 Ordered By: Melissa Corrigan Patient Education: (DC) Additional Instructions: Discharge instructions were reviewed with the patient including signs and symptoms of infection and home going medications ACTIVITY RESTRICTIONS: Lifting Restrictions: 20 pounds for 6 weeks Do not submerge incision under water X 2 weeks? Nothing vaginally for 6 weeks: no tampons or intercourse Do not drive while taking narcotic pain medication(s) No high intensity, high impact or core exercises for 6 weeks. Walking and walking and down stairs is safe as soon as you arrive home. Off Work or School for a minimum of 8 weeks Symptoms to report to doctor: * Bleeding that saturates more than one pad per hour * Passing clots larger than the size of a golf ball * Pain not relieved by prescribed medication * Fever above 100.4 degrees Fahrenheit * A foul vaginal odor * Difficulty in emotions, mood, and functions * Thoughts of hurting yourself and/or * Painful, reddened area in your breast * Any drainage, redness, or tenderness in your IV/epidural site * Severe headache that doesn't improve after taking medications * Changes in vision, including temporary loss of vision, blurred vision, and/or light sensitivity * Upper abdominal pain (usually under ribs on the right side) * Decrease in urination or painful, frequent urinating * Chest pain * Shortness of breath * Tenderness or pain with redness and/swelling in the calf(s) of your leg FOLLOW-UP APPOINTMENTS: 2-week visit: incision check, discuss feeding concerns, review control options and screen for anxiety/depression. 6-week visit for an annual exam. consultation services are available to all mothers and babies for the first year after delivery.? To make an appointment, please call [phone]. Discharge Diet: Regular Follow Up Appointments: [facility] [Provider Group] Shirlene Lewis MD [Primary Care Provider] - Forms: [facility] Info Instructions
== END 2022-05-03 17:00 | disposition home or self-care (01) | DRG 787 ==
PROVIDERS: Advanced Practice Midwife; Obstetrics & Gynecology; Admitting Provider Advanced Practice Midwife; PCP Family Medicine; Visit Provider Advanced Practice Midwife
PROC: 10D00Z1 Extraction of Products of Conception, Low, Open Approach (ICD-10-PCS; CPT 59514; principal; 2022-05-01 18:15)
DX: O48.0 Post-term pregnancy (principal); D62 Acute posthemorrhagic anemia; O62.0 Primary inadequate contractions; Z37.0 Single live birth; O90.81 Anemia of the puerperium; Z3A.42 42 weeks gestation of pregnancy
CPT/HCPCS: 01967; 01968; 36415; 64488; 76942; 85018; 87081; 87635; 87653; 99140; A9270; C9290; J0690; J1100; J1885; J2210; J2274; J2370; J2405; J2590; J2795; J3010; J3490; J7120